=== PATIENT | female | born 1960 | race Caucasian/White ===

== ENCOUNTER 2019-05-05 18:26 | Observation (INO) | payer OTHER, SELFPAY ==
[2019-05-05 18:33] VITALS: BP 124/68; PULSE 87; RESP 23; TEMP 36.6; O2SAT 95
[2019-05-05 19:00] VITALS: BP 148/80; PULSE 83; RESP 12; O2SAT 99
[2019-05-05 19:05] LABS: Add Manual Diff / Slide Review NO; Basophils Absolute Auto 100 /uL (0-100); Basophils Percent Auto 1.1 % (0-2); Eosinophils Absolute Auto 100 /uL (0-450); Eosinophils Percent Auto 2.2 % (2-4); Hematocrit 42.3 % (36-46); Hemoglobin 14.4 g/dL (12.0-16.0); Lymphocytes Absolute Auto 2600 /uL (1100-4500); Lymphocytes Percent Auto 40.1 % (25-40); Mean Corpuscular Hemoglobin 31.5 PG (26-34); Mean Corpuscular Volume 92.7 fL (80-100); Monocytes Absolute Auto 500 /uL (0-900); Neutrophils Absolute Auto 3100 /uL (1500-7000); Neutrophils Percent Auto 48.6 % (50-75); Platelet Count 193 X10^3/uL (150-400); Red Blood Cell Count 4.56 X10^6/uL (4.0-5.2); Red Cell Distribution Width 13.6 % (11.6-14.8); White Blood Cell Count 6.5 X10^3/uL (4.5-11.0)
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
[2019-05-05 19:15] LABS: Alanine Aminotransferase 28 IU/L (<35); Albumin Globulin Ratio 1.3 (1.0-2.8); Alkaline Phosphatase 78 U/L (38-126); Aspartate Aminotransferase 32 IU/L (14-36); Bilirubin Total 0.7 mg/dL (0.2-1.3); Blood Urea Nitrogen 16 mg/dL (7-17); Carbon Dioxide 29 mmol/L (22-32); Chloride 107 mmol/L (98-107); Estimated Glomerular Filt Rate > 60.0 mL/min (>60); Globulin 3.2 g/dL (1.7-4.1); Glucose 107 mg/dL (70-100); HEMOLYSIS < 15 (0-50); Sodium 143 mmol/L (137-145); Total Protein 7.2 g/dL (6.3-8.2)
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
[2019-05-05 19:29] LABS: Troponin I < 0.012 ng/mL (0.01-0.034)
[2019-05-05] MEDS: SODIUM CHLORIDE 0.9% 1,000 ML 1000 ML IV (20:08)
[2019-05-05 20:20] LABS: Creatine Kinase 52 U/L (30-135); Lipase 51 U/L (23-300)
[2019-05-05 20:58] LABS: Ammonia (NH3) < 9 umol/L (9-30)
[2019-05-05 22:06] VITALS: BP 136/71; PULSE 83; RESP 21; O2SAT 98
[2019-05-05 22:35] VITALS: BP 96/52; PULSE 85; RESP 18; O2SAT 96
[2019-05-05 23:05] VITALS: BP 123/59; PULSE 85; RESP 17; O2SAT 100
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
[2019-05-06] VITALS (10 sets, daily range): BP systolic 122–156; BP diastolic 60–98; PULSE 70–88; RESP 17–23; TEMP 36.6–37.2; O2SAT 95–98; BMI 40.4
--- NOTE | 2019-05-06 00:54 | DI.ECHO.S_ITS ---
[facility]---------+ [facility] +---------+ : : [address] : : : : [address] : : : : Phone: [phone] Echocardiogram Report + + :Name: GAIL ENCARNACION Study Date: 05/06/2019 Height: 64 in : :[facility] Weight: 260 lb : : Gender: Female BSA: 2.2 m2 : :: 1960 Age: 59 yrs BP: 140/96 mmHg: :Reason For Study: SYNCOPE : :Ordering Physician: Shu : :Hospitalist Performed By: Vianney Almonte : :Referring: ARTI TOMLIN : + + Interpretation Summary 1) Normal left ventricular size, thickness, wall motion, and systolic function (EF 60-65%). 2) Normal right ventricular size and function. 3) Color doppler suggests PFO which was also visualized on previous exam 01/20/2011. 4) No significant valvular abnormalities. 5) The ascending aorta is mildly enlarged at 3.8cm. 6) Hypertension present during the study (BP 140/96mmHg). 7) Compared to the Echo done 01/20/2011, ascending aorta enlargement has increased from 3.6cm to 3.8cm. Procedure: A two-dimensional transthoracic echocardiogram with color flow and Doppler was performed. The study quality was technically adequate. Comparison is made with the echocardiogram of 01/20/2011. The patient was in normal sinus rhythm during the exam. Left Ventricle: The left ventricle is normal in size and wall thickness. The ejection fraction is estimated to be 60-65%. Left ventricular wall motion is normal. Diastolic parameters suggest a pseudonormalization pattern, consistent with probable elevated filling pressures. Right Ventricle: The right ventricle is normal in size and function. Atria: Both atria are normal in size. A patent foramen ovale is present. Mitral Valve: The mitral valve is normal in structure and function. There is no mitral regurgitation noted. Aortic Valve: The aortic valve is trileaflet. The aortic valve opens well. There is no aortic valve stenosis. No aortic regurgitation is present. Tricuspid Valve: The tricuspid valve is normal in structure and function. No tricuspid regurgitation. Pulmonic Valve: The pulmonic valve is not well visualized. There is a trace or physiologic amount of pulmonic regurgitation. Great Vessels: The aortic root is normal size. The ascending aorta is mildly enlarged. The aortic arch is mildly enlarged. The IVC is of normal diameter and collapses greater than 50% with a sniff. This suggests a low right atrial pressure of 3 mm Hg. Pericardium/ Pleura There is an anterior echo-free space consistent with a fat pad. There is no pericardial effusion. MMode/2D Measurements & Calculations LVIDd: 4.2 cm LVOT diam: 2.1 cm LVIDs: 2.9 cm Ao root diam: 3.3 cm FS: 31.5 % asc Aorta Diam: 3.8 cm EPSS: 1.6 cm Ao Arch Diam (Prox Trans): 3.6 cm IVSd: 0.85 cm LVPWd: 0.92 cm LV otero. diameter/BSA (cm/m^2): 1.9 LV sys. diameter/BSA (cm/m^2): 1.3 LA A2 area: 13.6 cm2 RA long axis: 5.4 cm LA A4 area: 14.1 cm2 RA area: 16.0 cm2 LA length (vol): 5.2 cm RA vol: 40.0 ml LA vol: 31.4 ml RA : 18.3 ml/m2 LA vol index: 14.4 ml/m2 IVC diam: 1.1 cm RVD1 (basal): 2.5 cm RVD2 (mid): 2.4 cm TAPSE: 2.6 cm Doppler Measurements & Calculations Ao V2 max: 126.0 cm/sec LVOT Max Randal: 93.1 cm/sec Ao V2 mean: 88.2 cm/sec LV V1 max P.5 mmHg Ao max P.4 mmHg LV V1 VTI: 19.8 cm Ao mean P.4 mmHg JERI(I,D): 2.7 cm2 Ao V2 VTI: 26.2 cm JERI(V,D): 2.6 cm2 sev ratio: 0.76 JERI indexed to BSA (cm^2/m^2): 1.2 MV E max randal: 78.3 cm/sec PA V2 max: 80.2 cm/sec MV A max randal: 86.4 cm/sec PA V2 mean: 56.8 cm/sec MV E/A: 0.91 PA mean P.5 mmHg Med Peak E' Randal: 5.7 cm/sec PA pr(Accel): 38.3 mmHg E/E' med: 13.8 Lat Peak E' Randal: 6.8 cm/sec E/E' lat: 11.4 E/e' average: 12.6 MV dec time: 0.24 sec MV P1/2t: 71.4 msec MV P1/2t max randal: 79.4 cm/sec SV(LVOT): 70.3 ml MVA(P1/2t): 3.1 cm2 Reading Physician:01:38 PM
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
[2019-05-06] MEDS: ACETAMINOPHEN 325 MG TABLET 650 MG PO (05:11)
[2019-05-06 05:17] LABS: RBC Urine None Seen (0-5/HPF); WBC Urine None Seen (0-5/HPF)
[2019-05-06 05:18] LABS: Appearance Urine UA CLEAR; Bilirubin Urine UA NEGATIVE (NEGATIVE); Color Urine UA YELLOW; Glucose Urine UA NEGATIVE (Negative); Ketones Urine UA NEGATIVE (NEGATIVE); Leukocyte Esterase Urine UA NEGATIVE (NEGATIVE); Nitrite Urine UA NEGATIVE (Negative); Occult Blood Urine UA NEGATIVE (Negative); Protein Urine UA NEGATIVE (Negative); Urobilinogen Urine UA 0.2 E.U./dL (0.2)
[2019-05-06 05:26] LABS: Bacteria Urine Moderate (10-30); Culture Indicated Urine Cult Not Indicated; Squamous Epithelial Cell Urine 1-5 /HPF (0-5/HPF)
[2019-05-06 05:51] LABS: BUN Creatinine Ratio 17.1 (6-22); Blood Urea Nitrogen 12 mg/dL (7-17); Calcium 8.8 mg/dL (8.4-10.2); Carbon Dioxide 26 mmol/L (22-32); Chloride 107 mmol/L (98-107); Estimated Glomerular Filt Rate > 60.0 mL/min (>60); Glucose 115 mg/dL (70-100); HEMOLYSIS < 15 (0-50); Potassium 3.9 mmol/L (3.4-5.1); Sodium 141 mmol/L (137-145)
[2019-05-06 06:13] LABS: T4 Total Thyroxine 8.49 ug/dL (5.5-11.0)
[2019-05-06 06:27] LABS: Thyroid Stimulating Hormone 2.28 uIU/mL (0.47-4.68)
[2019-05-06] MEDS: SODIUM CHLORIDE 0.9% FLUSH 10 ML IV ×2 (07:40→20:19)
--- NOTE | 2019-05-06 07:55 | PC.NURSE ---
Addendum entered by Rebecca Mendez R.N. 05/06/19 14:42: Pt asymptomatic throughout shift. Plan was for Orthostatic BP/Pulse check per this RN request after pt done with ECHO. ECHO started at 1115, as pt was back to bed at that time after sitting in chair throughout morning. cnc maintenance technician assisted pt back to chair and did not get orthostatics at that time. Dr. Valdez in to see pt around 1435. Original Note: Day Shift- Pt A&OX4, denies vision issues besides her normal impaired with reading, does not have her glasses at this time. Denies light-headed or dizziness with rest or with ambulation to chair this morning at 0750. Denies nausea, chest pressure, shortness of breath. States having discomfort to upper chest and right mid chest, with touch. BP 1379/72, P 76, O2 sat 95% on RA prior to ambulating to chair. Encouraged slow rise motion with movement from lying to sitting to standing. Pt appropriate. call light within reach.
--- NOTE | 2019-05-06 08:40 | PC.NURSE ---
Per primary nurse, switched blood pressure cuff size from large adult which covered nearly 90% of pt's upper arm to a regular adult long to get a more accurate reading.
[2019-05-06] MEDS: ENOXAPARIN 40 MG/0.4 ML SYRINGE SUBCUT (10:07)
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
[2019-05-06] MEDS: INFLUENZA VACCINE 0.5 ML SYRINGE IM (16:15)
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
[2019-05-07] VITALS (7 sets, daily range): BP systolic 144–182; BP diastolic 79–111; PULSE 79–108; RESP 14–18; TEMP 36.2–37; O2SAT 92–96
--- NOTE | 2019-05-07 03:35 | PC.NURSE ---
Addendum entered by Nica Costello R.N. 05/07/19 06:38: Noted to have had a 2kg weight loss this morning, but patient currently sleeping soundly so not gotten up to rezero the bed. Will have day staff rezero when patient is up and then reweigh. CHRISTOPHER Amaya, informed of weight loss and also of left wrist pain/swelling. No orders at this time. Original Note: Patient alert and oriented. Breath sounds CTA with RA sat of 97%. HRR. Telemetry reading was SR with rare PVC's. Denies chest pain, dizziness or lightheadedness. Denies nausea. BT hypoactive; denies flatus. Up to bathroom with SBA and voiding without dysuria, frequency or urgency. Is able to turn self in bed. Complains of 2/10 left wrist pain and noted to have some swelling in wrist area; declines offer of pain medication or ice pack. Wearing bilateral calf SCD's. Fall risk score is moderate; bed alarm is activated for safety. Is aware she will be NPO after 0800 for stress test later this morning.
[2019-05-07] MEDS: ENOXAPARIN 40 MG/0.4 ML SYRINGE SUBCUT (08:47)
[2019-05-07] MEDS: SODIUM CHLORIDE 0.9% FLUSH 10 ML IV (08:47)
--- NOTE | 2019-05-07 09:15 | PC.NURSE ---
Pt. had questions regarding the stress test and holter monitoring. The nurse and I discussed some specifics with the patient and also gave her printed information on both subjects to read.
--- NOTE | 2019-05-07 10:07 | PC.NURSE ---
Pt. up in chair and eating breakfast this AM. Denied pain. NPO @ 0800 for nuc. stress test happening @ 1100. Chaplain Richards was making rounds and my nurse and I suggested he might want to check in on this patient's emotional needs. He went in and came back to the nurses station reporting the patient was teary eyed and did not want to talk with him at this time. Pt. moved to room 208 @ 1025.
--- NOTE | 2019-05-07 11:03 | PC.NURSE ---
Transfer: Report received, transfer from rm 219. Pt denies any pain. BP rechecked 157/109, pulse 80's, pt reports bp is higher than what it has been. She is a little nervous. Does not feel dizzy. Is waiting for treadmill test to be completed. Reviewed information for syncopy/fainting. has call light. Resting quietly.
--- NOTE | 2019-05-07 11:32 | PC.NURSE ---
Day Shift- See Ramone Santiago Senior Devops Engineer progress note, agree with written statements. Report given to MAHENDRA Guzman at 1125 on current pt status.
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
--- NOTE | 2019-05-07 16:03 | CM.DPC ---
DCP Cont: Called [facility] at [phone] to obtain authorization for 2 week cardiac continuous monitoring as ordered by Dr. Hector. Was informed by Marlen garcia that we are unable to obtain the authorization because the case has not been fully reviewed and approved by their Care Management team and she was informed by her silverware supervisor that this kind of authorization should only be obtained by the patient's PCP. Marlen then transferred me to the Care Management team and I spoke to Joselyn who had recently received the case. She stated it would take her 10 minutes to complete the review, then I would have to call back to the main line and have someone in Referral Services put in the authorization for me. After 10 minutes, I called back to [facility] and spoke to Kristina garcia who was able to get authorization under Dr. Hector (this patient doesn't have a PCP). The approved codes are 0296T and 0298T. Auth # [id number]. Order and authorization both scanned into this account. Fatuma Iqbal, Care Paint Technician
--- NOTE | 2019-05-07 17:36 | DI.NM.S_ITS ---
DATE OF SERVICE: 05/05/2019 PROCEDURE: Exercise stress test perfusion study only. INDICATION: Syncope. RADIOPHARMACEUTICAL: 25.7 millicurie technetium-99m Myoview intravenous was injected at stress. FINDINGS: CARDIAC STRESS:: The patient underwent exercise perfusion study under the supervision of an attending staff. She walked on Emre protocol for 5 minutes 46 seconds and achieved 117 percent of target heart rate. Her maximum heart rate was 189. Baseline blood pressure 140/90. Peak blood pressure 169/96. No chest discomfort. Had significant shortness of breath. Baseline EKG revealed sinus rhythm with low-voltage complexes in chest leads with some nonspecific ST- T changes. During exercise, there were artifacts causing interpretation difficult, but in the immediate recovery, there appears to be sinus tachycardia. No obvious atrial fibrillation seen. No significant inducible ischemic changes. The patient has persistent sinus tachycardia. After 5 minutes of recovery, heart rate was about 107 beats per minute. In recovery, patient has some PACs and PVCs, as well. No sustained ventricular tachycardia. RAW DATA:: Significant breast shadow is seen. Patient's weight is 235 pounds. The stress LV ejection fraction is 80 percent. No obvious wall motion abnormalities. Stress end-diastolic volume 60 mL. Lung-heart ratio 0.45, which is upper limit of normal. MYOCARDIAL PERFUSION:: Stress supine images revealed mildly decreased perfusion of apex, which got resolved during prone images. Prone images revealed normal myocardial perfusion. CONCLUSION: 1. As far as perfusion scan is concerned, this is a normal myocardial perfusion study with evidence of breast tissue attenuation artifact, which got resolved during prone images. 2. Overall LV ejection fraction 80 percent. The patient has enhanced chronotropic response and poor exercise capacity. 3. Her functional aerobic impairment is positive 32 percent. Slow recovery. Some PACs, PVCs in recovery. No sustained ventricular tachycardia. No obvious atrial fibrillation. 4. Discussed the findings with Dr. Hector. Leeanne Anderson - ANURADHA/brenden/keara doc#: [id number]/job#: [id number] dd: 05/07/2019 13:07:00 dt: 05/07/2019 17:25:00 DICTATING MD/COPIES TO: Edwardo Mcgraw MD COPIES MNE: DORIAN;
--- NOTE | 2019-05-07 18:23 | PC.NURSE ---
Discharge instruction provided. pt aware that jackie will call her for appt. pt will follow up with PCP regarding her HTN. IV removed by student nurse Mario and instructor. pt escorted by returned goods sorter, wheelchair, belongings with patient.
== END 2019-05-07 17:17 | disposition home or self-care (01) ==
LOC: ED 22:54 → AC 22:59
PROVIDERS: Admitting Provider Nurse Practitioner Adult Health; Emergency Provider Emergency Medicine; Visit Provider Nurse Practitioner Adult Health
DX: R55 Syncope and collapse (principal); Z23 Encounter for immunization; I49.9 Cardiac arrhythmia, unspecified; W22.09XA Striking against other stationary object, initial encounter
CPT/HCPCS: 36415; 70450; 70498; 71046; 72125; 78451; 80048; 80053; 81001; 82140; 82550; 83690; 83735; 84436; 84443; 84484; 85025; 90471; 90656; 93005; 93017; 93306; 96360; 96372; 99284; 99285; G0378; A9502; J1650; Q2038; Q9967

== ENCOUNTER → 2019-05-13 08:13 | Outpatient (CLI) | payer OTHER, SELFPAY ==
[2019-05-06 01:38] VITALS: BMI 40.4
[2019-05-13 09:08] LABS: Cholesterol 188 mg/dL (140-199); HDL Cholesterol 46 mg/dL (40-60); LDL Cholesterol Calculated 107 mg/dL (<100); Triglycerides 175 mg/dL (35-150)
== END ==
PROVIDERS: Referring Provider Family Medicine; Visit Provider Family Medicine
DX: Z13.220 Encounter for screening for lipoid disorders (principal); R55 Syncope and collapse
CPT/HCPCS: 36415; 80061

== ENCOUNTER → 2020-06-30 12:07 | Outpatient (CLI) | payer OTHER, SELFPAY ==
[2019-05-06 01:38] VITALS: BMI 40.4
[2020-06-30] MEDS: COVID-19 VACC #1, MRNA(MOD) 100 MCG/0.5 ML VIAL IM (12:20)
== END ==
PROVIDERS: Visit Provider Internal Medicine
DX: Z23 Encounter for immunization (principal)
CPT/HCPCS: 0011A; 91301

== ENCOUNTER → 2020-07-28 12:21 | Outpatient (CLI) | payer OTHER, SELFPAY ==
[2019-05-06 01:38] VITALS: BMI 40.4
[2020-07-28] MEDS: COVID-19 VACC #2, MRNA(MOD) 100 MCG/0.5 ML VIAL IM (12:25)
== END ==
PROVIDERS: Visit Provider Internal Medicine
DX: Z23 Encounter for immunization (principal)
CPT/HCPCS: 0012A; 91301

== ENCOUNTER → 2020-12-07 08:13 | Outpatient (CLI) | payer OTHER, SELFPAY ==
[2019-05-06 01:38] VITALS: BMI 40.4
[2020-12-07 09:49] LABS: Add Manual Diff / Slide Review NO; Basophils Absolute Auto 0 /uL (0-100); Eosinophils Absolute Auto 100 /uL (0-450); Eosinophils Percent Auto 2.1 % (2-4); Hematocrit 43.4 % (36-46); Hemoglobin 14.7 g/dL (12.0-16.0); Lymphocytes Absolute Auto 1700 /uL (1100-4500); Lymphocytes Percent Auto 34.8 % (25-40); Mean Corpuscular HGB Conc 33.9 % (30-36); Mean Corpuscular Hemoglobin 32.2 PG (26-34); Monocytes Absolute Auto 300 /uL (0-900); Monocytes Percent Auto 6.5 % (3-14); Neutrophils Absolute Auto 2700 /uL (1500-7000); Neutrophils Percent Auto 55.6 % (50-75); Platelet Count 196 X10^3/uL (150-400); Red Blood Cell Count 4.57 X10^6/uL (4.0-5.2); Red Cell Distribution Width 13.1 % (11.6-14.8); White Blood Cell Count 4.8 X10^3/uL (4.5-11.0)
[2020-12-07 10:44] LABS: BUN Creatinine Ratio 26.3 (6-22); Blood Urea Nitrogen 20 mg/dL (7-17); Calcium 9.4 mg/dL (8.4-10.2); Carbon Dioxide 27 mmol/L (22-32); Chloride 107 mmol/L (98-107); Cholesterol 205 mg/dL (140-199); Estimated Glomerular Filt Rate > 60.0 mL/min (>60); Glucose 86 mg/dL (70-100); HDL Cholesterol 66 mg/dL (40-60); HEMOLYSIS < 15 (0-50); LDL Cholesterol Calculated 120 mg/dL (<100); Magnesium 2.1 mg/dL (1.6-2.3); Potassium 4.1 mmol/L (3.4-5.1); Sodium 140 mmol/L (137-145); Triglycerides 93 mg/dL (35-150)
== END ==
PROVIDERS: Internal Medicine Cardiovascular Disease; PCP Family Medicine; Referring Provider Family Medicine; Visit Provider Family Medicine
DX: I10 Essential (primary) hypertension (principal); Z86.79 Personal history of other diseases of the circulatory system
CPT/HCPCS: 36415; 80048; 80061; 83735; 85025

== ENCOUNTER → 2022-02-02 14:19 | Outpatient (CLI) | payer OTHER, SELFPAY ==
[2019-05-06 01:38] VITALS: BMI 40.4
--- NOTE | 2022-02-02 14:24 | DI.MG.S_ITS ---
BILATERAL DIGITAL SCREENING MAMMOGRAM 3D/2D WITH CAD: 02/02/2022 CLINICAL: Routine screening. Family history of breast cancer. Comparison is made to exams dated: 07/22/2012 mammogram, 01/04/2011 mammogram, and 06/07/2009 mammogram - [facility]. There are scattered areas of fibroglandular density in both breasts (category b / 25%-50% glandular tissue). Current study was also evaluated with a Computer Aided Detection (CAD) system. There is a benign area of fat necrosis in the right breast. There also are benign calcifications in the right breast. No significant masses, calcifications, or other findings are seen in either breast. There has been no significant interval change. IMPRESSION: BENIGN There is no mammographic evidence of malignancy. A 1 year screening mammogram is recommended. Based on the Tyrer Cuzick model (a risk assessment model) the patient's lifetime risk is 8.5% and her 10 year risk is 3.4%. According to the ACR, ACS, and NCCN guidelines, an annual breast MRI exam along with mammogram is recommended if the patient's lifetime risk is 20% or greater. This exam was interpreted at Station ID: [id number]. NOTE: For mammograms, a report in lay terms will be sent to the patient. Approximately 15% of breast malignancies will not be visualized mammographically. In the management of a palpable breast mass, a negative mammogram must not discourage biopsy of a clinically suspicious lesion. Electronically Signed By: Ambar king/dominic:02/02/2022 18:17:02 copy to: Rashida Sumner letter sent: Normal Exam ACR BI-RADS Category 2: Benign Finding(s) 3342F
== END ==
PROVIDERS: PCP Family Medicine; Referring Provider Family Medicine; Visit Provider Family Medicine
DX: Z12.31 Encounter for screening mammogram for malignant neoplasm of breast (principal); Z80.3 Family history of malignant neoplasm of breast
CPT/HCPCS: 77063; 77067

== ENCOUNTER → 2023-02-19 09:15 | Outpatient (CLI) | payer OTHER, SELFPAY ==
[2019-05-06 01:38] VITALS: BMI 40.4
[2023-02-19 10:03] LABS: Add Manual Diff / Slide Review NO; Basophils Absolute Auto 0 /uL (0-100); Basophils Percent Auto 0.7 % (0-2); Eosinophils Absolute Auto 100 /uL (0-450); Eosinophils Percent Auto 2.3 % (2-4); Hematocrit 41.5 % (36-46); Hemoglobin 14.1 g/dL (12.0-16.0); Lymphocytes Absolute Auto 1800 /uL (1100-4500); Lymphocytes Percent Auto 33.6 % (25-40); Mean Corpuscular HGB Conc 33.8 % (30-36); Mean Corpuscular Hemoglobin 31.8 PG (26-34); Mean Corpuscular Volume 93.9 fL (80-100); Monocytes Absolute Auto 300 /uL (0-900); Monocytes Percent Auto 5.3 % (3-14); Neutrophils Absolute Auto 3000 /uL (1500-7000); Neutrophils Percent Auto 58.1 % (50-75); Platelet Count 214 X10^3/uL (150-400); Red Blood Cell Count 4.42 X10^6/uL (4.0-5.2); Red Cell Distribution Width 13.1 % (11.6-14.8); White Blood Cell Count 5.2 X10^3/uL (4.5-11.0)
[2023-02-19 10:12] LABS: Hemoglobin A1C% w Est Avg Glu 5.5 % (4.0-6.0)
[2023-02-19 10:27] LABS: Creatinine Urine Random 92.2 mg/dL
[2023-02-19 10:30] LABS: Alanine Aminotransferase 14 IU/L (<35); Albumin 3.8 g/dL (3.5-5.0); Albumin Globulin Ratio 1.2 (1.0-2.8); Alkaline Phosphatase 71 U/L (38-126); Aspartate Aminotransferase 18 IU/L (14-36); BUN Creatinine Ratio 23.2 (6-22); Bilirubin Total 0.8 mg/dL (0.2-1.3); Blood Urea Nitrogen 16 mg/dL (7-17); Calcium 9.4 mg/dL (8.4-10.2); Carbon Dioxide 26 mmol/L (22-32); Chloride 107 mmol/L (98-107); Cholesterol 188 mg/dL (140-199); Estimated Glomerular Filt Rate > 60 mL/min (>60); Globulin 3.2 g/dL (1.7-4.1); Glucose 94 mg/dL (80-110); HDL Cholesterol 45 mg/dL (40-60); HEMOLYSIS < 15 (0-50); LDL Cholesterol Calculated 106 mg/dL (<100); Potassium 4.5 mmol/L (3.4-5.1); Sodium 138 mmol/L (137-145); Triglycerides 185 mg/dL (35-150)
[2023-02-19 10:34] LABS: Microalbumi Creatinin Ratio Ur 21.6 ug/mg CR (<30)
[2023-02-19 10:57] LABS: TSH w/ Reflex to FT4 0.85 uIU/mL (0.47-4.68)
[2023-02-19 11:14] LABS: Vitamin B12 253 pg/mL (239-931)
== END ==
PROVIDERS: PCP Family Medicine; Referring Provider Physician Assistant; Visit Provider Physician Assistant
DX: Z13.6 Encounter for screening for cardiovascular disorders (principal); Z13.1 Encounter for screening for diabetes mellitus; I47.10 Supraventricular tachycardia, unspecified; I10 Essential (primary) hypertension; R73.01 Impaired fasting glucose; R61 Generalized hyperhidrosis; R25.1 Tremor, unspecified; R29.898 Other symptoms and signs involving the musculoskeletal system; Z13.220 Encounter for screening for lipoid disorders
CPT/HCPCS: 36415; 80053; 80061; 82043; 82570; 82607; 83036; 84443; 85025

== ENCOUNTER → 2023-03-30 14:33 | Outpatient (CLI) | payer OTHER, SELFPAY ==
[2019-05-06 01:38] VITALS: BMI 40.4
--- NOTE | 2023-03-30 14:45 | DI.MG.S_ITS ---
BILATERAL DIGITAL SCREENING MAMMOGRAM 3D/2D WITH CAD: 03/30/2023 CLINICAL: Routine screening. Family history of breast cancer. Comparison is made to exams dated: 02/02/2022 mammogram, 07/22/2012 mammogram, and 01/04/2011 mammogram - [facility]. There are scattered areas of fibroglandular density in both breasts (category b / 25%-50% glandular tissue). Current study was also evaluated with a Computer Aided Detection (CAD) system. There is a benign area of fat necrosis in the right breast. There also are benign calcifications in the right breast. No significant masses, calcifications, or other findings are seen in either breast. There has been no significant interval change. IMPRESSION: BENIGN There is no mammographic evidence of malignancy. A 1 year screening mammogram is recommended. Based on the Tyrer Cuzick model (a risk assessment model) the patient's lifetime risk is 8.1% and her 10 year risk is 3.5%. According to the ACR, ACS, and NCCN guidelines, an annual breast MRI exam along with mammogram is recommended if the patient's lifetime risk is 20% or greater. This exam was interpreted at Station ID: [id number]. NOTE: For mammograms, a report in lay terms will be sent to the patient. Approximately 15% of breast malignancies will not be visualized mammographically. In the management of a palpable breast mass, a negative mammogram must not discourage biopsy of a clinically suspicious lesion. Electronically Signed By: Eric sarah/dominic:03/30/2023 15:22:53 letter sent: Normal Exam ACR BI-RADS Category 2: Benign Finding(s) 3342F
== END ==
LOC: MAMMO 14:34
PROVIDERS: PCP Family Medicine; Referring Provider Family Medicine; Visit Provider Family Medicine
DX: Z12.31 Encounter for screening mammogram for malignant neoplasm of breast (principal); Z80.3 Family history of malignant neoplasm of breast
CPT/HCPCS: 77063; 77067

== ENCOUNTER 2023-08-02 09:44 | Day surgery (SDC) | payer OTHER, SELFPAY ==
[2019-05-06 01:38] VITALS: BMI 40.4
--- NOTE | 2023-08-02 | PATH_ITS ---
[facility] Accession Number: [id number] No. of containers..02 Tissue . 01 Material submitted: . PART A: colon - CECAL POLYP PART B: colon - DESCENDING POLYPS . 01 Diagnosis: Part A: CECAL POLYP: Tubular adenoma. . Part B: DESCENDING POLYPS: Hyperplastic polyp. [facility] 08/06/2023 1150 Local . 01 Electronically signed: . Gil Zuniga MD, Pathologist NPI- [id number] . 01 Gross description: . A. Received in formalin, labeled with the patient's name, , and cecal polyp, consists of two fragments of pink-guillory soft tissue, both measuring 0.2 cm in greatest dimension. The tissue is entirely submitted in cassette A1. . B. Received in formalin, labeled with the patient's name, , and descending polyps, consists of two fragments of pink-guillory soft tissue, both measuring 0.3 cm in greatest dimension. The tissue is entirely submitted in cassette B1. ([id number]) /MRV 08/06/2023 1150 Local . 01 Pathologist provided ICD-10: D12.0, K63.5 . 01 CPT . 116640, 663970 Specimen Comment: A courtesy copy of this report has been sent to [phone] Performed at: 01 [facility] [address] [place] [address], [place], [place] [id number] MD Gil Zuniga MD Phone: [phone]
[2023-08-02 10:02] VITALS: BP 132/80; PULSE 90; RESP 16; TEMP 36.5; O2SAT 98
[2023-08-02] MEDS: LACTATED RINGERS 1,000 ML 150 ML IV (10:04)
--- NOTE | 2023-08-02 10:05 | PM.HP.1 ---
History of Present Illness History of Present Illness Date Patient Seen: 08/02/23 Time Patient Seen: 10:05 Chief complaint: SD Narrative: Leeanne is a 63-year-old woman who is here for colonoscopy. She last had colonoscopy over 10 years ago. Her mother had colon cancer. [facility] Medical History (Updated 08/02/23 @ 10:06 by Darron Vega MD) BMI 36.0-36.9,adult Epidermoid cyst of skin of shoulder HTN (hypertension) Chronic cough (~1973) Depression (~1973) Chicken pox (~1967) History of irregular heartbeat (~2005) Irregular heart rhythm Surgical History Status post tubal ligation Status post delivery Family History (Updated 05/22/19 @ 18:30 by Jada Larry) Father Heart disease Myocardial infarction Smoker Cancer Hypertension Mother Multiple sclerosis Irregular heartbeat Cancer Heart disease Sister Hypertension Social History household members: spouse and children Smoking Status: Never smoker alcohol intake: current substance use type: does not use Meds Home Medications and Allergies Home Medications Medication Instructions Recorded Confirmed Type diltiazem HCl 180 mg 180 mg PO DAILY 09/28/20 08/02/23 History capsule,extended release 24 hr conjugated estrogens 0.625 mg/gram 0.25 applic vaginal DAILY #30 grams 02/08/23 05/04/23 Rx vaginal cream peg 3350-sod sulf,emfuc-kmi-sgs 1,000 ml PO DIRECTED #2,000 mL 07/18/23 Rx 178.7-7.3-0.5-1.12-0.9 gram oral soln (Suflave) Allergies Allergy/AdvReac Type Severity Reaction Status Date / Time No Known Drug Allergies Allergy Verified 08/02/23 09:54 Exam Vital Signs (past 8 hours): - 08/02/23 10:02 Temperature 97.7 F Pulse Rate 90 Respiratory Rate 16 Blood Pressure 132/80 Pulse Oximetry 98 Oxygen Delivery Method Room Air Oxygen Delivery Method Room Air Const General: No acute distress Resp Effort & Inspection: normal respiratory effort Assessment & Plan Assessment and plan (1) Family history of colon cancer: Status: Acute Plan I recommended we proceed with colonoscopy for colon cancer screening and a family history of colon cancer. We discussed the risks and benefits and she would like to proceed.
[2023-08-02 10:37] VITALS: BP 109/67; PULSE 76; RESP 16; TEMP 37.1; O2SAT 98
--- NOTE | 2023-08-02 10:40 | PM.OP.COLON ---
Operative Date/Time/Diagnoses Date of procedure: 08/02/23 Time of procedure: 10:40 Pre-op diagnosis: Family history of colon cancer Post-op diagnosis: same Procedure & Clinicians Study performed: Colonoscopy Same procedure as scheduled: Yes Surgeon: Darron Vega Procedure Notes Procedure in detail: Surgeon: Darron Vega MD Anesthesia: Sonido Clarke MD Procedure: The patient was brought to the endoscopy suite, placed in left lateral decubitus position. The patient was connected to monitoring devices. A time-out was performed. Sedation was administered. Once the patient was adequately sedated, a digital rectal exam was performed and was normal. The scope was then inserted and advanced to the cecum where the appendiceal orifice was identified and photographed. The scope was then slowly withdrawn over greater than 6 minutes. The mucosa was thoroughly inspected. There was a small polyp in the cecum right at the appendiceal orifice. It was removed with a cold forceps. There were 2 small polyps in the descending colon, each about 5 mm and both removed with cold forceps. The scope was retroflexed in the rectum. No other abnormalities were seen. The scope was straightened and removed. The patient was awakened and brought to recovery. Scope withdrawal time: 10 minutes Sedation time: 13 minutes EBL: 5 mL Findings: 1 small cecal polyp in 2 small descending colon polyps Post-procedure Disposition: PACU
[2023-08-02 10:42] VITALS: BP 104/66; PULSE 75; RESP 16; O2SAT 95
[2023-08-02 10:47] VITALS: BP 111/66; PULSE 71; RESP 14; TEMP 36.3; O2SAT 95
[2023-08-02 10:50] VITALS: BP 100/69; PULSE 71; RESP 16; O2SAT 99
== END 2023-08-02 11:00 | disposition home or self-care (01) ==
PROVIDERS: PCP Family Medicine; Referring Provider Surgery; Visit Provider Surgery
PROC: 0DJD8ZZ Inspection of Lower Intestinal Tract, Via Natural or Artificial Opening Endoscopic (ICD-10-PCS; CPT 45378; principal; 2023-08-02 10:30)
DX: Z12.11 Encounter for screening for malignant neoplasm of colon (principal); Z80.0 Family history of malignant neoplasm of digestive organs; D12.0 Benign neoplasm of cecum; K63.5 Polyp of colon
CPT/HCPCS: 45380; J2704

== ENCOUNTER → 2024-02-20 09:30 | Outpatient (CLI) | payer OTHER, SELFPAY ==
[2019-05-06 01:38] VITALS: BMI 40.4
[2024-02-20 10:18] LABS: Add Manual Diff / Slide Review NO; Basophils Absolute Auto 100 /uL (0-100); Basophils Percent Auto 1.1 % (0-2); Eosinophils Absolute Auto 200 /uL (0-450); Eosinophils Percent Auto 3.5 % (2-4); Lymphocytes Absolute Auto 1600 /uL (1100-4500); Mean Corpuscular HGB Conc 34.1 % (30-36); Mean Corpuscular Hemoglobin 32.1 PG (26-34); Mean Corpuscular Volume 94.1 fL (80-100); Monocytes Absolute Auto 300 /uL (0-900); Monocytes Percent Auto 6.2 % (3-14); Neutrophils Absolute Auto 2600 /uL (1500-7000); Neutrophils Percent Auto 55.2 % (50-75); Platelet Count 238 X10^3/uL (150-400); Red Blood Cell Count 4.35 X10^6/uL (4.0-5.2); Red Cell Distribution Width 13.5 % (11.6-14.8); White Blood Cell Count 4.8 X10^3/uL (4.5-11.0)
[2024-02-20 10:36] LABS: Alanine Aminotransferase 17 IU/L (<35); Albumin 3.9 g/dL (3.5-5.0); Albumin Globulin Ratio 1.4 (1.0-2.8); Alkaline Phosphatase 79 U/L (38-126); Aspartate Aminotransferase 18 IU/L (14-36); BUN Creatinine Ratio 25.3 (6-22); Bilirubin Total 0.9 mg/dL (0.2-1.3); Blood Urea Nitrogen 20 mg/dL (7-17); Calcium 9.5 mg/dL (8.4-10.2); Carbon Dioxide 26 mmol/L (22-32); Chloride 108 mmol/L (98-107); Cholesterol 218 mg/dL (140-199); Estimated Glomerular Filt Rate > 60 mL/min (>60); Globulin 2.7 g/dL (1.7-4.1); Glucose 95 mg/dL (80-110); HDL Cholesterol 56 mg/dL (40-60); HEMOLYSIS < 15 (0-50); LDL Cholesterol Calculated 128 mg/dL (<100); Potassium 4.2 mmol/L (3.4-5.1); Sodium 140 mmol/L (137-145); Total Protein 6.6 g/dL (6.3-8.2); Triglycerides 169 mg/dL (35-150)
[2024-02-20 11:06] LABS: TSH w/ Reflex to FT4 1.16 uIU/mL (0.47-4.68)
== END ==
PROVIDERS: PCP Family Medicine; Referring Provider Family Medicine; Visit Provider Family Medicine
DX: I10 Essential (primary) hypertension (principal); Z68.36 Body mass index [BMI] 36.0-36.9, adult
CPT/HCPCS: 36415; 80053; 80061; 84443; 85025

== ENCOUNTER → 2024-04-10 15:19 | Outpatient (CLI) | payer OTHER, SELFPAY ==
[2019-05-06 01:38] VITALS: BMI 40.4
[2024-04-10 16:53] LABS: Influenza A - CEPHEID Flu A NEGATIVE (NEGATIVE); Influenza B - CEPHEID Flu B NEGATIVE (NEGATIVE); Respiratory Syncytial Virus Negative (Negative)
[2024-04-10 17:01] LABS: COVID-19 CEPHEID 4-PLEX PCR Negative (Negative)
== END ==
PROVIDERS: PCP Family Medicine; Visit Provider Physician Assistant
DX: R05.1 Acute cough (principal)
CPT/HCPCS: 0241U

== ENCOUNTER → 2024-11-05 09:15 | Outpatient (CLI) | payer OTHER, SELFPAY ==
[2019-05-06 01:38] VITALS: BMI 40.4
[2024-11-05 10:05] LABS: Estimated Glomerular Filt Rate > 60 mL/min (>60)
== END ==
PROVIDERS: PCP Family Medicine; Referring Provider Internal Medicine Cardiovascular Disease; Visit Provider Internal Medicine Cardiovascular Disease
DX: I48.0 Paroxysmal atrial fibrillation (principal)
CPT/HCPCS: 36415; 82565

== ENCOUNTER → 2025-01-19 12:43 | Outpatient (CLI) | payer OTHER, SELFPAY ==
[2019-05-06 01:38] VITALS: BMI 40.4
[2025-01-19 13:14] LABS: Add Manual Diff / Slide Review NO; Hematocrit 43.9 % (36-46); Hemoglobin 15.0 g/dL (12.0-16.0); Lymphocytes Absolute Auto 2000 /uL (1100-4500); Mean Corpuscular HGB Conc 34.2 % (30-36); Mean Corpuscular Hemoglobin 31.8 PG (26-34); Mean Corpuscular Volume 93.3 fL (80-100); Platelet Count 253 X10^3/uL (150-400)
[2025-01-19 13:33] LABS: Blood Urea Nitrogen 17 mg/dL (7-17); Calcium 9.7 mg/dL (8.4-10.2); Carbon Dioxide 27 mmol/L (22-32); Chloride 103 mmol/L (98-107); Estimated Glomerular Filt Rate > 60 mL/min (>60); Glucose 91 mg/dL (70-99); HEMOLYSIS < 15 (0-50); Potassium 3.9 mmol/L (3.4-5.1); Sodium 138 mmol/L (137-145)
== END ==
PROVIDERS: PCP Family Medicine; Referring Provider Internal Medicine Cardiovascular Disease; Visit Provider Internal Medicine Cardiovascular Disease
DX: I48.0 Paroxysmal atrial fibrillation (principal)
CPT/HCPCS: 36415; 80048; 85025